=== PATIENT | male | born 1930 | race Caucasian/White ===

== ENCOUNTER → 2016-11-01 | Outpatient (CLI) | payer OTHER ==
[~2016-11-01] MED LIST: DUTA0.5C PO; ESCI1TAB6 PO; FLM4 PO; GLIP-197 PO; IBUP-1427 PO; NMN10 PO; ZCR40 PO
[2016-11-01 15:21] LABS: CHOLESTEROL/HDL RATIO 3.3
== END | disposition home or self-care (01) ==
LOC: C.LAB 13:38
PROVIDERS: ATTEND Internal Medicine
DX: E11.9 Type 2 diabetes mellitus without complications (principal)

== ENCOUNTER → 2017-02-08 | Outpatient (CLI) | payer OTHER | END | disposition home or self-care (01) | LOC: C.LABSPEC 17:00 | PROVIDERS: ATTEND Urology | DX: N39.0 Urinary tract infection, site not specified (principal) ==

== ENCOUNTER → 2017-03-29 | Outpatient (CLI) | payer OTHER | END | disposition home or self-care (01) | LOC: C.PATHSPEC 17:13 | PROVIDERS: ATTEND Urology | DX: C67.9 Malignant neoplasm of bladder, unspecified (principal) ==

== ENCOUNTER → 2017-10-12 | Outpatient (CLI) | payer OTHER ==
--- NOTE | 2017-10-12 17:11 | DIAGNOSTIC IMAGING REPORT ---
R VENOUS DOPP LOWER EXT UNILAT CLINICAL HISTORY: RIGHT LEG PAIN AND SWELLING, R/O DVT TECHNIQUE: Venous Doppler COMPARISON STUDY: None FINDINGS: Complex nonocclusive thrombus within the right proximal femoral vein. Chronic venous scarring along the additional jett of the femoral vein. All remaining venous structures are intact. 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 The above report was generated using voice recognition software. It may contain grammatical, syntax or spelling errors. Electronically signed by: Checo Wright M.D. 10/12/2017 5:10 PM Dictated Date/Time: 10/12/2017 5:09 PM
== END | disposition home or self-care (01) ==
LOC: C.ULTR 16:25
PROVIDERS: ATTEND Internal Medicine
DX: I82.591 Chronic embolism and thrombosis of other specified deep vein of right lower extremity (principal)

== ENCOUNTER 2020-02-10 18:58 | Inpatient (IN) ==
[2020-02-10] MEDS ORDERED: SODIUM CHLORIDE 0.9% 1000ML 1,000 ML IV ONE (19:38)
[2020-02-10] MEDS ORDERED: ONDANSETRON INJ 2 MG/ML 2 ML VIAL IV STA (19:38)
[2020-02-10 19:47] LABS: Hematocrit (blood only) 32.9 % (42-52); Hemoglobin 10.8 g/dL (14.0-18.0); Mean Corpuscular Hgb Conc 32.8 g/dL (32-36); Mean Corpuscular Volume 94.5 fL (80-100); Mean Platelet Volume 9.3 fL (7.4-10.4); Platelet Count 277 K/uL (130-400); RDW Coefficient of Variation 13.6 % (11.5-14.5); RDW Standard Deviation 46.9 fL (36.4-46.3); Red Blood Count 3.48 M/uL (4.7-6.1); White Blood Count 12.19 K/uL (4.8-10.8)
--- NOTE | 2020-02-10 19:57 | XRay Report ---
XR chest 1V portable HISTORY: weakness COMPARISON: Chest 12/29/2013. FINDINGS: The heart remains mildly enlarged. Left-sided dual-chamber pacemaker. No pleural effusions. No pneumothorax. No new focal lung consolidations to suggest pneumonia. No evidence for pulmonary ed jose. IMPRESSION: No acute process. ACT 112: Negative or not required by law. Electronically signed by: Edvin Bell M.D. 02/10/2020 7:56 PM
--- NOTE | 2020-02-10 20:00 | Emergency Department Note ---
History of Present Illness General Chief complaint: Weakness Stated complaint: WEAKNESS, VOMITING, DIARRHEA Time Seen by Provider: 02/10/20 19:25 Source: patient, family (daughter in law), RN notes reviewed and old records rev iewed Mode of arrival: ambulatory Limitations: no limitations History of Present Illness Provider complaint: weakness Onset (ago): day(s) 1 Location: abdomen Radiation: non-radiation Severity: moderate Pain Consistency: + intermittent and + colicky Maximum Pain Intensity: 6 Current Pain Intensity: 6 Quality: + aching Relieved By: + immobilization Exacerbated By: + movement Associated symptoms: + fever/chills and + nausea/vomiting; no chest pain, no diaphoresis and no shortness of breath Treatments prior to arrival: none This is an 89-year-old male brought in by his [id number] over concerns of the patient is much weaker than normal. The patient has a history of dementia has a pacemaker in place. She reports he was having a large bowel movement whi ch went on for the past hour today. When the patient came out of the bathroom he was extremely weak. He is also having abdominal pain. The patient denies any blood in his stool. He describes the abdominal pain as a burning sensation that radiates into his back. He has not taken anything for the pain. Home Medications Home Medications Medication Instructions Recorded Confirmed Type atorvastatin 20 mg tablet 20 mg PO DAILY 07/17/18 02/10/20 History dutasteride 0.5 mg capsule 0.5 mg PO DAILY 07/17/18 02/10/20 History escitalopram oxalate 10 mg tablet 10 mg PO DAILY 07/17/18 02/10/20 History gabapentin 300 mg capsule 300 mg PO HS cap 07/17/18 02/10/20 History glipizide 2.5 mg tablet, extended 2.5 mg PO DAILY tab 07/17/18 02/10/20 History release 24 hr memantine 10 mg tablet 10 mg PO BID 07/17/18 02/10/20 History rivaroxaban 20 mg tablet 20 mg PO QPM 07/17/18 02/10/20 History tamsulosin 0.4 mg capsule 0.4 mg PO DAILY 07/17/18 02/10/20 History clobetasol 1 applic TOPICAL BID 02/10/20 02/10/20 History stepetmn-zhu-SM-lycopene-boron 1 tab PO DAILY 02/10/20 02/10/20 History [Bladder 2.2] Allergies Allergy/AdvReac Type Severity Reaction Status Date / Time Tetanus Vaccines and Toxoid Allergy Verified 01/16/20 14:28 spinal anesthesia AdvReac Unknown weakness,urinary Uncoded 11/28/19 13:44 retention,vomiting, SEVERE DIZZINESS Past Med/Surg History Medical History (Updated 02/11/20 @ 00:42 by Dean Anna MD) Actinic keratosis Arthritis Basal cell carcinoma Bladder cancer Bladder neck contracture BPH (benign prostatic hyperplasia) Carpal tunnel syndrome Chronic kidney disease Depression Diabetes DVT (deep venous thrombosis) Dyslipidemia Facet syndrome, lumbar Somerset's disease Hearing loss Insomnia Nephrolithiasis Nocturia Tinnitus Ureteral stricture Urinary frequency Venous stasis ulcer Xerosis cutis Surgical History Pacemaker S/P TURP Family History Other Family history non-contributory Social History Smoking Status: Never smoker Hx Alcohol Use: No Hx Substance Use: No Preferred Language: [facility] Communication Ability: [facility] Visual Impairment: Partially Limited Hearing Ability: Use of Hearing Aid Beliefs That Will Affect Care: None marital status: Current Living Situation: Alone current occupational status: retired Feels Safe at Home: Yes Review of Systems A total of 10 systems reviewed and were otherwise negative Physical Exam Vital Signs Vital Signs - 24 hr 02/10/20 19:04 02/10/20 19:47 02/10/20 20:40 Temperature 37.4 C Temperature Source Oral Pulse Rate 64 Pulse Rate [Apical] 61 60 Respiratory Rate 18 18 18 Respiratory Effort / Characteristics Non-Labored Non-Labored Respiratory Depth Normal Normal Blood Pressure 155/64 H Blood Pressure [Left Arm] 145/56 H 128/51 L Blood Pressure Mean 94 Blood Pressure Mean [Left Arm] 85 76 Pulse Oximetry 94 96 96 Oxygen Delivery Method Room Air Room Air Sepsis Recent Fever Within 48 Hours No Sepsis New/Unexplained Change in Mental Status No Sepsis Action Taken by Nursing No Action Required 02/10/20 21:04 02/10/20 21:09 02/10/20 22:04 Temperature 38.5 C H Temperature Source Oral Pulse Rate Pulse Rate [Apical] 60 60 Respiratory Rate 18 18 Respiratory Effort / Characteristics Respiratory Depth Blood Pressure Blood Pressure [Left Arm] 132/53 L 128/57 L Blood Pressure Mean Blood Pressure Mean [Left Arm] 79 80 Pulse Oximetry 95 95 Oxygen Delivery Method Room Air Room Air Sepsis Recent Fever Within 48 Hours Sepsis New/Unexplained Change in Mental Status Sepsis Action Taken by Nursing 02/10/20 22:30 02/10/20 23:02 02/10/20 23:40 Temperature 36.8 C Temperature Source Oral Pulse Rate Pulse Rate [Apical] 61 60 64 Respiratory Rate 18 20 18 Respiratory Effort / Characteristics Non-Labored Respiratory Depth Normal Blood Pressure Blood Pressure [Left Arm] 129/54 L 129/54 L 123/55 L Blood Pressure Mean Blood Pressure Mean [Left Arm] 79 79 77 Pulse Oximetry 95 97 95 Oxygen Delivery Method Room Air Room Air Room Air Sepsis Recent Fever Within 48 Hours Sepsis New/Unexplained Change in Mental Status Sepsis Action Taken by Nursing 02/10/20 23:50 Temperature Temperature Source Pulse Rate Pulse Rate [Apical] Respiratory Rate Respiratory Effort / Characteristics Respiratory Depth Blood Pressure Blood Pressure [Left Arm] Blood Pressure Mean Blood Pressure Mean [Left Arm] Pulse Oximetry Oxygen Delivery Method Room Air Sepsis Recent Fever Within 48 Hours Sepsis New/Unexplained Change in Mental Status Sepsis Action Taken by Nursing VITAL SIGNS - Vital signs and nursing notes were reviewed. GENERAL - 89-year-old male appearing stated age who is in no acute distress. speaks guatemalan, daughter in law is translating SKIN - Without rashes. HEAD - NC/AT. EYES - PERRL with EOMI bilaterally. Sclera anicteric. Palpebral conjunctiva pink and moist with no injection noted. EARS - No deformities of external structures noted on gross examination bilaterally. No pain elicited with palpation of the tragus bilaterally. External auditory canals without discharge or otorrhea. Tympanic membranes pearly hung without retraction or bulging. No fluid or purulent material visualized behind the TM. Handle of malleus, umbo, cone of light, pars tensa/flaccid all easily visualized. NOSE - Midline and without cyanosis. No epistaxis or purulent drainage noted. Septum midline without deviation or septal hematoma noted. MOUTH/OROPHARYNX - Without perioral cyanosis. Buccal mucosa pink and moist and without leukoplakia. Tongue midline with equal elevation of palate bilaterally. No tonsillar hypertrophy, erythema, or exudates noted. dentition noted. NECK - Neck with FROM. Supple to palpation. lymphadenopathy noted. No nuchal rigidity. LUNGS - Chest wall symmetric without accessory muscle use, intercostals retractions, or central cyanosis. Normal vesicular breath sounds CTA B/L. No wheezes, rales, or rhonchi appreciated. CARDIAC - RRR with S1/S2. No murmur, rubs, or gallops appreciated. ABDOMEN - Abdominal contour without pulsations or visible masses. BS normoactive all four quadrants. No tenderness, palpable masses, hepatosplenomegaly, or ascites noted. EXTREMITIES - No clubbing or peripheral cyanosis. No pretibial edema present. +3/5 radial, posterior tibial, and dorsalis pedis pulses palpated throughout. +5/5 strength noted in UE/LE bilaterally. NEUROLOGIC - Cranial nerves II through XII grossly intact. Sensory intact to light touch throughout. Patellar reflexes +2/4. PSYCH - A&Ox3 and cooperates fully with examiner. Pt is very pleasant and interacts well with examiner. Course Administered Medications Discontinued Medications Sodium Chloride (Nss 1000ml) 1,000 mls @ 999 mls/hr IV .Q1H1M ONE Stop: 02/10/20 20:38 Last Infusion: 02/10/20 21:41 Dose: 0 mls/hr Documented by: [id number] Admin: 02/10/20 20:41 Dose: 999 mls/hr Documented by: [id number] Cefoxitin Sodium (Mefoxin) 2,000 mg in 60 mls @ 100 mls/hr IV NOW STA Stop: 02/10/20 21:46 Last Infusion: 02/10/20 22:39 Dose: 0 mls/hr Documented by: [id number] Admin: 02/10/20 22:03 Dose: 100 mls/hr Documented by: [id number] Acetaminophen (Ofirmev) 1,000 mg in 100 mls @ 400 mls/hr IV NOW STA Stop: 02/10/20 21:42 Last Infusion: 02/10/20 22:45 Dose: 0 mls/hr Documented by: [id number] Admin: 02/10/20 22:27 Dose: 400 mls/hr Documented by: [id number] Ondansetron HCl (Ondansetron Inj 2 Mg/Ml 2 Ml Vial) 4 mg IV NOW STA Stop: 02/10/20 19:39 Last Admin: 02/10/20 21:10 Dose: Not Given Documented by: [id number] Critical Care Time I have personally spent greater than 90 minutes of critical care time in the direct management of this patient. This includes bedside care, interpretation of diagnostic studies, and testing, discussion with consultants, patient, and family members, and other required patient management activities. This 90 minutes is in excess of all separately billable procedures. Medical Decision Making Differential Diagnosis Infection, dehydration, metabolic abnormality, hypo/hyperglycemia, electrolyte disturbance, anemia, hypoxia, cardiac sources, intracerebral event, toxicologic, neurologic, as well as other pathologies. Medical Records Attestation: I reviewed the patient's medical records. Home Medications Current Medication List: was personally reviewed by me Laboratory Data Attestation: I reviewed the patient's lab results. Result diagrams: 02/10/20 19:34 02/10/20 19:34 Lab Results 02/10/20 02/10/20 02/10/20 Range/Units 19:34 19:34 19:34 WBC 12.19 H (4.8-10.8) K/uL RBC 3.48 L (4.7-6.1) M/uL Hgb 10.8 L (14.0-18.0) g/dL Hct 32.9 L (42-52) % MCV 94.5 (80-100) fL MCH 31.0 (25-34) pg MCHC 32.8 (32-36) g/dL RDW Std Deviation 46.9 H (36.4-46.3) fL RDW Coeff of Joe 13.6 (11.5-14.5) % Plt Count 277 (130-400) K/uL MPV 9.3 (7.4-10.4) fL Immature Gran % (Auto) 0.2 % Neut % (Auto) 82.0 % Lymph % (Auto) 9.6 % Mckenzie % (Auto) 7.8 % Eos % (Auto) 0.2 % Baso % (Auto) 0.2 % Neut # (Auto) 9.98 H (1.4-6.5) K/uL Lymph # (Auto) 1.17 L (1.2-3.4) K/uL Mckenzie # (Auto) 0.95 H (0.11-0.59) K/uL Eos # (Auto) 0.03 (0-0.5) K/uL Baso # (Auto) 0.03 (0-0.2) K/uL Immature Gran # (Auto) 0.03 H (0.00-0.02) K/uL Sodium 137 (136-145) mmol/L Potassium 4.5 (3.5-5.1) mmol/L Chloride 106 (98-107) mmol/L Carbon Dioxide 22 (21-32) mmol/L Anion Gap 9.0 (3-11) BUN 20 H (7-18) mg/dl Creatinine 1.52 H (0.6-1.4) mg/dl Est Cr Clr Drug Dosing Not Reportable Est GFR ( Amer) 46.4 Est GFR (Non-Af Amer) 40.0 BUN/Creatinine Ratio 13.0 (10-20) Glucose 261 H (70-99) mg/dl Calcium 8.8 (8.5-10.1) mg/dl Total Bilirubin 1.9 H (0.2-1) mg/dl Direct Bilirubin 1.2 H (0-0.2) mg/dl AST 1031 H (15-37) U/L ALT 499 H (12-78) U/L Alkaline Phosphatase 284 H (45-117) U/L Total Creatine Kinase 67 (39-308) U/L CK-MB (CK-2) < 1.0 (0.5-3.6) ng/ml CK/CKMB % Calc TNP Troponin I < 0.015 (0-0.045) ng/ml Total Protein 8.3 H (6.4-8.2) gm/dl Albumin 3.4 (3.4-5.0) gm/dl Globulin 4.9 H (2.5-4.0) gm/dl Albumin/Globulin Ratio 0.7 L (0.9-2) Lipase 72 L Cancelled (73-393) U/L TSH 0.651 (0.300-4.500) uIu/ml Urine Color Urine Appearance (Clear) Urine pH (4.5-7.5) Ur Specific Panther Burn (1.000-1.030) Urine Protein (Negative) Urine Glucose (UA) (Negative) Urine Ketones (Negative) Urine Blood (Negative) Urine Nitrite (Negative) Urine Bilirubin (Negative) Urine Urobilinogen (Negative) Ur Leukocyte Esterase (Negative) Urine WBC (Auto) (0-5) /hpf Urine RBC (Auto) (0-4) /hpf U Hyaline Cast (Auto) (0-5) /lpf U Epithel Cells (Auto) (0-5) /lpf Urine Bacteria (Auto) (Negative) Hep Bs Antigen (Neg) Hepatitis C Antibody (Neg) 02/10/20 02/10/20 Range/Units 19:34 21:10 WBC (4.8-10.8) K/uL RBC (4.7-6.1) M/uL Hgb (14.0-18.0) g/dL Hct (42-52) % MCV (80-100) fL MCH (25-34) pg MCHC (32-36) g/dL RDW Std Deviation (36.4-46.3) fL RDW Coeff of Joe (11.5-14.5) % Plt Count (130-400) K/uL MPV (7.4-10.4) fL Immature Gran % (Auto) % Neut % (Auto) % Lymph % (Auto) % Mckenzie % (Auto) % Eos % (Auto) % Baso % (Auto) % Neut # (Auto) (1.4-6.5) K/uL Lymph # (Auto) (1.2-3.4) K/uL Mckenzie # (Auto) (0.11-0.59) K/uL Eos # (Auto) (0-0.5) K/uL Baso # (Auto) (0-0.2) K/uL Immature Gran # (Auto) (0.00-0.02) K/uL Sodium (136-145) mmol/L Potassium (3.5-5.1) mmol/L Chloride (98-107) mmol/L Carbon Dioxide (21-32) mmol/L Anion Gap (3-11) BUN (7-18) mg/dl Creatinine (0.6-1.4) mg/dl Est Cr Clr Drug Dosing Est GFR ( Amer) Est GFR (Non-Af Amer) BUN/Creatinine Ratio (10-20) Glucose (70-99) mg/dl Calcium (8.5-10.1) mg/dl Total Bilirubin (0.2-1) mg/dl Direct Bilirubin (0-0.2) mg/dl AST (15-37) U/L ALT (12-78) U/L Alkaline Phosphatase (45-117) U/L Total Creatine Kinase (39-308) U/L CK-MB (CK-2) (0.5-3.6) ng/ml CK/CKMB % Calc Troponin I (0-0.045) ng/ml Total Protein (6.4-8.2) gm/dl Albumin (3.4-5.0) gm/dl Globulin (2.5-4.0) gm/dl Albumin/Globulin Ratio (0.9-2) Lipase (73-393) U/L TSH (0.300-4.500) uIu/ml Urine Color Dark Yellow Urine Appearance Clear (Clear) Urine pH 6.0 (4.5-7.5) Ur Specific Panther Burn 1.016 (1.000-1.030) Urine Protein 1+ H (Negative) Urine Glucose (UA) Trace H (Negative) Urine Ketones Negative (Negative) Urine Blood Trace H (Negative) Urine Nitrite Negative (Negative) Urine Bilirubin Negative (Negative) Urine Urobilinogen Negative (Negative) Ur Leukocyte Esterase Negative (Negative) Urine WBC (Auto) 1-5 (0-5) /hpf Urine RBC (Auto) 5-10 H (0-4) /hpf U Hyaline Cast (Auto) 1-5 (0-5) /lpf U Epithel Cells (Auto) >30 H (0-5) /lpf Urine Bacteria (Auto) Negative (Negative) Hep Bs Antigen Neg (Neg) Hepatitis C Antibody Neg (Neg) Imaging Data Radiologist's Impression: [place], [place] [phone] CT Scan Report Patient: MELONIE FORTE I Admit Date: 02/10/20 MR#: [id number] Address1: [address] [place] [address] [id number] Acct ID:[id number] Address2: Date: [address] [facility] Zip: [place] [address] Age: 89 Location: ED Sex: M Room/Bed: Att Phy: Diagnosis: WEAKNESS, VOMITING, DIARRHEA Jennifer Phy: PCP,NO Service Date: 02/10/20 Fam Phy: Interpreting Phy: Edvin Bell MD Admit Phy: Ordering Phy: Dean Anna MD cc: ~ ABDOMEN AND PELVIS CT WITHOUT CONTRAST CT DOSE: 618.84 mGy.cm HISTORY: Nausea. Vomiting. Diarrhea. TECHNIQUE: Multiaxial CT images of the abdomen and pelvis were performed without contrast. A dose lowering technique was utilized adhering to the principles of ALARA. COMPARISON STUDY: Abdomen and pelvis CT 05/27/2014. FINDINGS: Pacemaker wire is partially visualized. A 3 mm nodule within the right lower lobe on image 19. A few bibasilar linear densities favor atelectasis. There is a 3 mm nodule within the left lower lobe on image 5, unchanged. Therefore, this is likely benign. No pneumoperitoneum. No pneumatosis. Moderate osteoarthritis within the bilateral hips. No suspicious lytic or blastic osseous lesions. Bilateral gynecomastia. Small fat-containing bilateral inguinal hernias. Mild pericholecystic inflammatory change. The unenhanced liver, spleen, adrenal glands are unremarkable. Focal atrophy within the body of the pancreas, unchanged. Bilateral renal hypodense lesions are again noted. These favor cysts. Punctate bilateral renal calculi. No ureteral calculi. No hydronephrosis. Moderate bilateral cortical renal scarring/thinning persists. No retroperitoneal lymphadenopathy. Normal caliber abdominal aorta. No pelvic lymphadenopathy. The bladder is unremarkable. Suboptimal evaluation for bowel pathology due to the lack of intravenous and oral contrast. However, there is no definite bowel wall thickening or obstruction. Colonic diverticulosis. No evidence for diverticulitis. Normal appendix. IMPRESSION: 1. Mild pericholecystic inflammatory change. This is concerning for acute cholecystitis. Coronal correlation recommended. Follow-up right upper quadrant with the may also help for further evaluation. 2. No definite bowel wall thickening or obstruction. 3. Normal appendix. 4. Bilateral nephrolithiasis. No ureteral stones. No hydronephrosis. 5. Colonic diverticulosis. No evidence for acute diverticulitis. ACT 112: Negative or not required by law. Electronically signed by: Edvin Bell M.D. 02/10/2020 9:05 PM Dictated: 02/10/202056 Transcribed: 02/10/202056 [facility], [place] [phone] XRay Report Patient: MELONIE FORTE I Admit Date: 02/10/20 MR#: [id number] Address1: [address] [place] [address] [id number] Acct ID:[id number] Address2: Date: [address] [facility] Zip: [place] [address] Age: 89 Location: ED Sex: M Room/Bed: Att Phy: Diagnosis: WEAKNESS, VOMITING, DIARRHEA Jennifer Phy: PCP,NO Service Date: 02/10/20 [facility] Phy: Interpreting Phy: Edvin Bell MD Admit Phy: Ordering Phy: Dean Anna MD cc: ~ XR chest 1V portable HISTORY: weakness COMPARISON: Chest 12/29/2013. FINDINGS: The heart remains mildly enlarged. Left-sided dual-chamber pacemaker. No pleural effusions. No pneumothorax. No new focal lung consolidations to suggest pneumonia. No evidence for pulmonary edema. IMPRESSION: No acute process. ACT 112: Negative or not required by law. Electronically signed by: Edvin Bell M.D. 02/10/2020 7:56 PM Dictated: 02/10/201950 Transcribed: 02/10/201950 Ultrasound right upper quadrant: Comparison to CT scan from February 10, 2020 at 2049 hrs. The pancreas is mildly obscured by bowel gas. The liver is mildly echogenic and upper normal in size measuring 17.4 cm likely mild fatty infiltration. There is some focal fatty sparring near the gallbladder fossa. No focal liver lesion is seen. The portal vein is patent with normal directional flow. The common bile duct is nondilated measuring 6 mm. The gallbladder is partially distended with a thickened wall measuring 5 mm demonstrating a small amount of pericholecystic fluid. There is sludge in the dependent portion of the gallbladder. Sonographic Tuttle sign is negative. ECG Data Attestation: I personally reviewed and interpreted this ECG as follows: Indication: + altered mental status Rate (beats per minute): 62 Rhythm: + other (atrial paced rythym) MDM Narrative This is an 89-year-old male who presents to the emergency department febrile and complaining of abdominal pain. The patient has an elevation in his white blood cell count as well as his liver enzymes. He was sent for CAT scan the abdomen pelvis which was concerning for acute cholecystitis. I did discuss the case w ith the surgeon on-call who recommended the patient be transferred to a tertiary care center. Unfortunately both [facility] and [facility] are full. I did discuss these findings with the patient's family including his grandson who is also physician. The family is requesting that we admit the patient overnight for IV antibiotics and did consider transferring the patient to [facility] in the morning. I did discuss this with [address] [facility] [address] Betancur as well as Dr. Ramos. They are in agreement with this and have asked surgery as well as GI to see the patient here. Patient was started on IV antibiotics here. He was discussed with the hospitalist service. Patient was seen and evaluated as above in room C4. Review was performed of nursing notes and vital signs. I did review pertinent previous visits and patient history. After obtaining a thorough history and physical examination the above work up was performed. An order was placed for continuous cardiac monitoring. The monitor shows a rate of 64 with paced rhythm. The patient was evaluated during the global COVID-19 pandemic, and that diagnosis was suspected/considered upon their initial presentation. Their evaluation, treatment and testing was consistent with current guidelines for patients who present with complaints or symptoms that may be related to COVID- 19. Impression & Plan Abnormal LFTs, Acute cholecystitis, Dementia Discharge Plan Visit Data Chief Complaint: Weakness Stated Complaint: WEAKNESS, VOMITING, DIARRHEA ED Provider: Dean Anna Discharge Problem: Abnormal LFTs, Acute cholecystitis, Dementia Patient Disposition: Admitted As Inpatient Discharge Instructions Interventions: ED Discharge Assessment Last Done: 02/10/20 23:50 Discharge Problem: Dementia Qualifiers: Dementia type: unspecified type Dementia behavioral disturbance: without behavioral disturbance Qualified Code(s): F03.90 - Unspecified dementia without behavioral disturbance
[2020-02-10 20:03] LABS: Alanine Aminotransferase 499 U/L (12-78); Albumin Level 3.4 gm/dl (3.4-5.0); Blood Urea Nitrogen 20 mg/dl (7-18); Calcium 8.8 mg/dl (8.5-10.1); Carbon Dioxide 22 mmol/L (21-32); Chloride 106 mmol/L (98-107); Est GFR (African American) 46.4; Glucose 261 mg/dl (70-99); Potassium 4.5 mmol/L (3.5-5.1); Sodium 137 mmol/L (136-145)
[2020-02-10 20:06] LABS: Basophils # (auto) 0.03 K/uL (0-0.2); Basophils % (auto) 0.2 %; Eosinophils # (auto) 0.03 K/uL (0-0.5); Eosinophils % (auto) 0.2 %; Immature Granulocytes # (auto) 0.03 K/uL (0.00-0.02); Immature Granulocytes % (auto) 0.2 %; Lymphocytes # (auto) 1.17 K/uL (1.2-3.4); Lymphocytes % (auto) 9.6 %; Monocytes # (auto) 0.95 K/uL (0.11-0.59); Monocytes % (auto) 7.8 %; Neutrophils # (auto) 9.98 K/uL (1.4-6.5)
[2020-02-10 20:14] LABS: Albumin Globulin Ratio 0.7 (0.9-2); Alkaline Phosphatase 284 U/L (45-117); Aspartate Aminotransferase 1031 U/L (15-37); Bilirubin,Total 1.9 mg/dl (0.2-1); Creatine Kinase 67 U/L (39-308); Creatine Kinase MB < 1.0 ng/ml (0.5-3.6); Globulin 4.9 gm/dl (2.5-4.0); Thyroid Stimulating Hormone 0.651 uIu/ml (0.300-4.500); Total Protein 8.3 gm/dl (6.4-8.2); Troponin I < 0.015 ng/ml (0-0.045)
[2020-02-10 20:28] LABS: Lipase 72 U/L (73-393)
[2020-02-10 20:57] LABS: Hepatitis B Surface Antigen Neg (Neg)
--- NOTE | 2020-02-10 21:06 | CT Scan Report ---
ABDOMEN AND PELVIS CT WITHOUT CONTRAST CT DOSE: 618.84 mGy.cm HISTORY: Nausea. Vomiting. Diarrhea. TECHNIQUE: Multiaxial CT images of the abdomen and pelvis were performed without contrast. A dose lo wering technique was utilized adhering to the principles of ALARA. COMPARISON STUDY: Abdomen and pelvis CT 05/27/2014. FINDINGS: Pacemaker wire is partially visualized. A 3 mm nodule within the right lower lobe on image 19. A few bibasilar linear densities favor atelectasis. There is a 3 mm nodule within the left lower lobe on image 5, unchanged. Therefore, this is likely benign. No pneumoperitoneum. No pneumatosis. Mo derate osteoarthritis within the bilateral hips. No suspicious lytic or blastic osseous lesions. Bila teral gynecomastia. Small fat-containing bilateral inguinal hernias. Mild pericholecystic inflammator y change. The unenhanced liver, spleen, adrenal glands are unremarkable. Focal atrophy within the bod y of the pancreas, unchanged. Bilateral renal hypodense lesions are again noted. These favor cysts. P unctate bilateral renal calculi. No ureteral calculi. No hydronephrosis. Moderate bilateral cortical renal scarring/thinning persists. No retroperitoneal lymphadenopathy. Normal caliber abdominal aorta. No pelvic lymphadenopathy. The bladder is unremarkable. Suboptimal evaluation for bowel pathology du e to the lack of intravenous and oral contrast. However, there is no definite bowel wall thickening o r obstruction. Colonic diverticulosis. No evidence for diverticulitis. Normal appendix. IMPRESSION: 1. Mild pericholecystic inflammatory change. This is concerning for acute cholecystitis. Coronal dinora elation recommended. Follow-up right upper quadrant with the may also help for further evaluation. 2. No definite bowel wall thickening or obstruction. 3. Normal appendix. 4. Bilateral nephrolithiasis. No ureteral stones. No hydronephrosis. 5. Colonic diverticulosis. No evidence for acute diverticulitis. ACT 112: Negative or not required by law. Electronically signed by: Edvin Bell M.D. 02/10/2020 9:05 PM
[2020-02-10] MEDS ORDERED: cefOXitin 2,000 MG/60 ML BAG IV STA (21:11)
[2020-02-10 21:22] LABS: Appearance Urine Clear (Clear); Bacteria Urine Automated Negative (Negative); Blood Urine Trace (Negative); Color Urine Dark Yellow; Epithelial Cell Urine Auto >30 /lpf (0-5); Glucose Urine UA Trace (Negative); Ketones Urine Negative (Negative); Leukocyte Esterase Urine Negative (Negative); Nitrite Urine Negative (Negative); Protein Urine 1+ (Negative); Specific Gravity Urine 1.016 (1.000-1.030); Urobilinogen Urine Negative (Negative)
[2020-02-10 21:25] LABS: Hepatitis C IgG 13Yrs+Old_Rflx Neg (Neg)
[2020-02-10] MEDS ORDERED: ACETAMINOPHEN 1,000 MG/100 ML VIAL IV STA (21:28)
[2020-02-10 21:31] LABS: Bilirubin Urine Negative (Negative); Ictotest Urine Negative (Negative)
--- NOTE | 2020-02-10 22:20 | Surgery Consultation ---
Date of Consultation February 10, 2020 Assessment & Plan (1) Acute cholecystitis: -case reviewed with Dr. Ayala: -due to advanced age and marked elevation of LFTs, recommend transfer to center where IR available for percutaneous cholecystostomy -ED physician noted [place] available [place] [facility] [place] like pt. transferred; he did discuss with department of surgery at [facility] and due to lack of bed availability, they recommend admission at [facility] for IV abx. and ask GI to evaluate for elevated LFTs; ED physician notes he will have hospitalist admit for the above care History of Present Illness Attending Physician: History of Present Illness 89 year old male presented to ED secondary to N/V. Hx. was limited due to dementia, and was supplemented by daughter in law who was at bedside and discussion with ED physician. The pt. was noted to be doing well yesterday, but developed N/V earlier today. No fevers noted. He did not really complain of pain. No additional subjective data was able to be obtained. In the ED CT scan of te abdomen showed concern for acute cholecystitis. LFT were noted to be markedly elevated. At the time of my exam the pt. was resting comfortably in bed, not in any distress. Allergies Allergy/AdvReac Type Severity Reaction Status Date / Time Tetanus Vaccines and Toxoid Allergy Verified 01/16/20 14:28 spinal anesthesia AdvReac Unknown weakness,urinary Uncoded 11/28/19 13:44 retention,vomiting, SEVERE DIZZINESS Home Medications Home Medications Medication Instructions Recorded Confirmed Type atorvastatin 20 mg tablet 20 mg PO DAILY 07/17/18 02/10/20 History dutasteride 0.5 mg capsule 0.5 mg PO DAILY 07/17/18 02/10/20 History escitalopram oxalate 10 mg tablet 10 mg PO DAILY 07/17/18 02/10/20 History gabapentin 300 mg capsule 300 mg PO HS cap 07/17/18 02/10/20 History glipizide 2.5 mg tablet, extended 2.5 mg PO DAILY tab 07/17/18 02/10/20 History release 24 hr memantine 10 mg tablet 10 mg PO BID 07/17/18 02/10/20 History rivaroxaban 20 mg tablet 20 mg PO QPM 07/17/18 02/10/20 History tamsulosin 0.4 mg capsule 0.4 mg PO DAILY 07/17/18 02/10/20 History clobetasol 1 applic TOPICAL BID 02/10/20 02/10/20 History wfnygisl-dgw-LW-lycopene-boron 1 tab PO DAILY 02/10/20 02/10/20 History [Bladder 2.2] Patient History Medical History (Updated 02/10/20 @ 22:25 by Juancho Paul PA-C) Actinic keratosis Arthritis Basal cell carcinoma Bladder cancer Bladder neck contracture BPH (benign prostatic hyperplasia) Carpal tunnel syndrome Chronic kidney disease Depression Diabetes DVT (deep venous thrombosis) Dyslipidemia Facet syndrome, lumbar Dalton's disease Hearing loss Insomnia Nephrolithiasis Nocturia Tinnitus Ureteral stricture Urinary frequency Venous stasis ulcer Xerosis cutis Surgical History Pacemaker S/P TURP Family History Other Family history non-contributory Social History Smoking Status: Never smoker Hx Alcohol Use: No Hx Substance Use: No Preferred Language: [facility] Communication Ability: [facility] Visual Impairment: Partially Limited Hearing Ability: Use of Hearing Aid Beliefs That Will Affect Care: None marital status: Current Living Situation: Alone current occupational status: retired Feels Safe at Home: Yes Review of Systems Review of Systems: limited due to dementia Constitutional: no fever Respiratory: + cough Gastrointestinal: + nausea and + vomiting; no abdominal pain Physical Exam Constitutional: well developed and well nourished; no acute distress Eyes: + anicteric sclerae ENMT: no sublingual jaundice Neck: trachea midline Respiratory: normal respiratory effort, lungs clear to auscultation normal respiratory effort and + respiratory distress; no labored breathing Cardiovascular: Rate/Rhythm: regular rate and regular rhythm Gastrointestinal (Abdomen): Inspection/Auscultation: + hypoactive bowel sounds Percussion/Palpation: abdomen nontender and no guarding abdomen is rotund with slight distention; no pain with palpation Musculoskeletal: no calf pain Skin: no jaundice Neurologic: moves all extremities Results & Data ([facility]) Vital Signs (Past 12 Hours) Vital Signs Temp Pulse Pulse Resp BP BP Pulse Ox 02/10/20 22:04 60 18 128/57 L 95 02/10/20 21:09 38.5 C H 02/10/20 21:04 60 18 132/53 L 95 02/10/20 20:40 60 18 128/51 L 96 02/10/20 19:47 61 18 145/56 H 96 02/10/20 19:04 37.4 C 64 18 155/64 H 94 PG Care Time/CCT Total # of Minutes Spent Total Time Spent with Patient: Total time spent is greater than 50% in coordination of care (as documented) at patient's floor/unit and/or counseling patient: Coding Level of Care Code 33958 Inpt Consult Level 4 Diagnoses Acute cholecystitis K81.0
[2020-02-10 22:24] LABS: Bilirubin Direct 1.2 mg/dl (0-0.2)
--- NOTE | 2020-02-10 23:16 | History & Physical Report ---
Date of Service February 10, 2020 Assessment & Plan (1) Acute cholecystitis: 89yo C male with acute cholecystitis, possible fluid collection. Patient evaluated by General Surgery - recommend transfer to tertiary care facility for placement of percutaneous biliary drain. However, no beds available at this time at multiple facilities checked. Patient afebrile, HD stable, non-toxic in appearance. [id number] at bedside states that he is markedly improved. -Observation to medical floor -IVF - NSS at 80mL/hr x 1 liter -Cefoxitin 2gm IV q 6 hours -Tylenol PRN pain or fever -General Surgery assistance appreciated. Will keep overnight and transfer in AM pending bed availability -Will keep NPO, hold Rivaroxaban and check pre-op Covid Present on Admission?: Yes (2) Abnormal LFTs: Mixed obstructive, hepatocellular pattern. No obstructing biliary stones noted on imaging. -Repeat LFTs in AM -GI consultation at request of Surgery team - assistance appreciated Present on Admission?: Yes (3) Cellulitis of right lower leg: Improving. Patient follows with Wound clinic -Dressing changes as needed Present on Admission?: Yes (4) Chronic kidney disease: BUN=20, Cr=1.52. GFR=40 -Gentle IVF as above -Avoid nephrotoxic agents -Renal dosing where needed -Repeat chemistry in AM Present on Admission?: Yes (5) BPH (benign prostatic hyperplasia): Chronic -Conitnue Flomax and Dutasteride Present on Admission?: Yes (6) Diabetes: Chronic. Elevated blood sugar at 261 today -Hold Glipizide -Lantus 7u BID -ISS Present on Admission?: Yes (7) DVT (deep venous thrombosis): Remote. On anticoagulation with rivaroxaban -Hold rivaroxaban for possible surgery Present on Admission?: Yes (8) Dyslipidemia: Chronic -Continue Atorvastatin Present on Admission?: Yes (9) Depression: Chronic -Continue Escitalopram Present on Admission?: Yes (10) Dementia: Chronic -Continue memantine Present on Admission?: Yes History of Present Illness Chief Complaint: nausea/vomiting/diarrhea Primary Care Provider: NO PCP Jeremy Peck is an 89yo Mexican male with history of DM, CKD, Depression and prior DVT presenting with acute cholecystitis. Patient was in his usual state of health until this afternoon around 16:00 when he developed nausea/vomiting and non-bloody diarrhea. Patient then became diffusely weak and required ass istance to get off the commode. Patient febrile on arrival to 38.5, otherwise HD stable and nontoxic in appearance. Workup revealed acute cholecystitis. General Surgery was consulted and recommended transfer to tertiary care facility for placement of a percutaneous biliary drain. Patient offers no additional complaints. ER Course: Mefoxin Allergies Allergy/AdvReac Type Severity Reaction Status Date / Time Tetanus Vaccines and Toxoid Allergy Verified 01/16/20 14:28 spinal anesthesia AdvReac Unknown weakness,urinary Uncoded 11/28/19 13:44 retention,vomiting, SEVERE DIZZINESS Home Medications Home Medications Medication Instructions Recorded Confirmed Type atorvastatin 20 mg tablet 20 mg PO DAILY 07/17/18 02/10/20 History dutasteride 0.5 mg capsule 0.5 mg PO DAILY 07/17/18 02/10/20 History escitalopram oxalate 10 mg tablet 10 mg PO DAILY 07/17/18 02/10/20 History gabapentin 300 mg capsule 300 mg PO HS cap 07/17/18 02/10/20 History glipizide 2.5 mg tablet, extended 2.5 mg PO DAILY tab 07/17/18 02/10/20 History release 24 hr memantine 10 mg tablet 10 mg PO BID 07/17/18 02/10/20 History rivaroxaban 20 mg tablet 20 mg PO QPM 07/17/18 02/10/20 History tamsulosin 0.4 mg capsule 0.4 mg PO DAILY 07/17/18 02/10/20 History clobetasol 1 applic TOPICAL BID 02/10/20 02/10/20 History jyhzpati-uod-UV-lycopene-boron 1 tab PO DAILY 02/10/20 02/10/20 History [Bladder 2.2] Past Med/Surg History Medical History Actinic keratosis Arthritis Basal cell carcinoma Bladder cancer Bladder neck contracture BPH (benign prostatic hyperplasia) Carpal tunnel syndrome Chronic kidney disease Depression Diabetes DVT (deep venous thrombosis) Dyslipidemia Facet syndrome, lumbar Dalton's disease Hearing loss Insomnia Nephrolithiasis Nocturia Tinnitus Ureteral stricture Urinary frequency Venous stasis ulcer Xerosis cutis Surgical History Pacemaker S/P TURP Family History Other Family history non-contributory Social History Smoking Status: Never smoker Hx Alcohol Use: No Hx Substance Use: No Preferred Language: Mexican Communication Ability: Mexican Visual Impairment: Partially Limited Hearing Ability: Use of Hearing Aid Beliefs That Will Affect Care: None marital status: Current Living Situation: Alone current occupational status: retired Feels Safe at Home: Yes Review of Systems Review of Systems: All systems reviewed & are unremarkable except as noted in HPI & below Physical Exam Physical Exam: General: patient resting comfortably, NAD, non-toxic in appearance, Mexican speaking, hard of hearing Skin: warm, dry, intact, no rashes or lesions HEENT: NC/AT, PERRL, EOMI, anicteric sclera, conjunctiva without injection, external ear normal to inspection and nontender, nares patent, moist mucus membranes, dentition intact, no oropharyngeal lesions, neck supple, trachea midline, no LAD, no thyromegaly, no JVD Heart: +S1/S2, regular, no m/r/g Lungs: equal air entry bilaterally, no rales/rhonchi/wheezes Abd: +BS, soft, NT/ND, no masses/organomegaly/ascites Ext: warm, 2+ pulses in UE/LE bilaterally, no clubbing/cyanosis or edema Neuro: nonfocal, speech intact, no facial droop, moving all extremities on command with equal strength 5/5 Results & Data Results & Data ([facility]) Vital Signs (Past 12 Hours) Vital Signs Temp Pulse Pulse Resp BP BP Pulse Ox 02/10/20 23:02 60 20 129/54 L 97 02/10/20 22:30 61 18 129/54 L 95 02/10/20 22:04 60 18 128/57 L 95 02/10/20 21:09 38.5 C H 02/10/20 21:04 60 18 132/53 L 95 02/10/20 20:40 60 18 128/51 L 96 02/10/20 19:47 61 18 145/56 H 96 02/10/20 19:04 37.4 C 64 18 155/64 H 94 Laboratory Results Lab Results 02/10/20 02/10/20 02/10/20 Range/Units 19:34 19:34 19:34 WBC 12.19 H (4.8-10.8) K/uL RBC 3.48 L (4.7-6.1) M/uL Hgb 10.8 L (14.0-18.0) g/dL Hct 32.9 L (42-52) % MCV 94.5 (80-100) fL MCH 31.0 (25-34) pg MCHC 32.8 (32-36) g/dL RDW Std Deviation 46.9 H (36.4-46.3) fL RDW Coeff of Joe 13.6 (11.5-14.5) % Plt Count 277 (130-400) K/uL MPV 9.3 (7.4-10.4) fL Immature Gran % (Auto) 0.2 % Neut % (Auto) 82.0 % Lymph % (Auto) 9.6 % [place] % (Auto) 7.8 % Eos % (Auto) 0.2 % Baso % (Auto) 0.2 % Neut # (Auto) 9.98 H (1.4-6.5) K/uL Lymph # (Auto) 1.17 L (1.2-3.4) K/uL [place] # (Auto) 0.95 H (0.11-0.59) K/uL Eos # (Auto) 0.03 (0-0.5) K/uL Baso # (Auto) 0.03 (0-0.2) K/uL Immature Gran # (Auto) 0.03 H (0.00-0.02) K/uL Sodium 137 (136-145) mmol/L Potassium 4.5 (3.5-5.1) mmol/L Chloride 106 (98-107) mmol/L Carbon Dioxide 22 (21-32) mmol/L Anion Gap 9.0 (3-11) BUN 20 H (7-18) mg/dl Creatinine 1.52 H (0.6-1.4) mg/dl Est Cr Clr Drug Dosing Not Reportable Est GFR ( Amer) 46.4 Est GFR (Non-Af Amer) 40.0 BUN/Creatinine Ratio 13.0 (10-20) Glucose 261 H (70-99) mg/dl Calcium 8.8 (8.5-10.1) mg/dl Total Bilirubin 1.9 H (0.2-1) mg/dl Direct Bilirubin 1.2 H (0-0.2) mg/dl AST 1031 H (15-37) U/L ALT 499 H (12-78) U/L Alkaline Phosphatase 284 H (45-117) U/L Total Creatine Kinase 67 (39-308) U/L CK-MB (CK-2) < 1.0 (0.5-3.6) ng/ml CK/CKMB % Calc TNP Troponin I < 0.015 (0-0.045) ng/ml Total Protein 8.3 H (6.4-8.2) gm/dl Albumin 3.4 (3.4-5.0) gm/dl Globulin 4.9 H (2.5-4.0) gm/dl Albumin/Globulin Ratio 0.7 L (0.9-2) Lipase 72 L Cancelled (73-393) U/L TSH 0.651 (0.300-4.500) uIu/ml Urine Color Urine Appearance (Clear) Urine pH (4.5-7.5) Ur Specific [place] (1.000-1.030) Urine Protein (Negative) Urine Glucose (UA) (Negative) Urine Ketones (Negative) Urine Blood (Negative) Urine Nitrite (Negative) Urine Bilirubin (Negative) Urine Urobilinogen (Negative) Ur Leukocyte Esterase (Negative) Urine WBC (Auto) (0-5) /hpf Urine RBC (Auto) (0-4) /hpf U Hyaline Cast (Auto) (0-5) /lpf U Epithel Cells (Auto) (0-5) /lpf Urine Bacteria (Auto) (Negative) Hep Bs Antigen (Neg) Hepatitis C Antibody (Neg) 02/10/20 02/10/20 Range/Units 19:34 21:10 WBC (4.8-10.8) K/uL RBC (4.7-6.1) M/uL Hgb (14.0-18.0) g/dL Hct (42-52) % MCV (80-100) fL MCH (25-34) pg MCHC (32-36) g/dL RDW Std Deviation (36.4-46.3) fL RDW Coeff of Joe (11.5-14.5) % Plt Count (130-400) K/uL MPV (7.4-10.4) fL Immature Gran % (Auto) % Neut % (Auto) % Lymph % (Auto) % [place] % (Auto) % Eos % (Auto) % Baso % (Auto) % Neut # (Auto) (1.4-6.5) K/uL Lymph # (Auto) (1.2-3.4) K/uL [place] # (Auto) (0.11-0.59) K/uL Eos # (Auto) (0-0.5) K/uL Baso # (Auto) (0-0.2) K/uL Immature Gran # (Auto) (0.00-0.02) K/uL Sodium (136-145) mmol/L Potassium (3.5-5.1) mmol/L Chloride (98-107) mmol/L Carbon Dioxide (21-32) mmol/L Anion Gap (3-11) BUN (7-18) mg/dl Creatinine (0.6-1.4) mg/dl Est Cr Clr Drug Dosing Est GFR ( Amer) Est GFR (Non-Af Amer) BUN/Creatinine Ratio (10-20) Glucose (70-99) mg/dl Calcium (8.5-10.1) mg/dl Total Bilirubin (0.2-1) mg/dl Direct Bilirubin (0-0.2) mg/dl AST (15-37) U/L ALT (12-78) U/L Alkaline Phosphatase (45-117) U/L Total Creatine Kinase (39-308) U/L CK-MB (CK-2) (0.5-3.6) ng/ml CK/CKMB % Calc Troponin I (0-0.045) ng/ml Total Protein (6.4-8.2) gm/dl Albumin (3.4-5.0) gm/dl Globulin (2.5-4.0) gm/dl Albumin/Globulin Ratio (0.9-2) Lipase (73-393) U/L TSH (0.300-4.500) uIu/ml Urine Color Dark Yellow Urine Appearance Clear (Clear) Urine pH 6.0 (4.5-7.5) Ur Specific [place] 1.016 (1.000-1.030) Urine Protein 1+ H (Negative) Urine Glucose (UA) Trace H (Negative) Urine Ketones Negative (Negative) Urine Blood Trace H (Negative) Urine Nitrite Negative (Negative) Urine Bilirubin Negative (Negative) Urine Urobilinogen Negative (Negative) Ur Leukocyte Esterase Negative (Negative) Urine WBC (Auto) 1-5 (0-5) /hpf Urine RBC (Auto) 5-10 H (0-4) /hpf U Hyaline Cast (Auto) 1-5 (0-5) /lpf U Epithel Cells (Auto) >30 H (0-5) /lpf Urine Bacteria (Auto) Negative (Negative) Hep Bs Antigen Neg (Neg) Hepatitis C Antibody Neg (Neg) Diagnostic Findings ABDOMEN AND PELVIS CT WITHOUT CONTRAST CT DOSE: 618.84 mGy.cm HISTORY: Nausea. Vomiting. Diarrhea. TECHNIQUE: Multiaxial CT images of the abdomen and pelvis were performed without contrast. A dose lowering technique was utilized adhering to the principles of ALARA. COMPARISON STUDY: Abdomen and pelvis CT 05/27/2014. FINDINGS: Pacemaker wire is partially visualized. A 3 mm nodule within the right lower lobe on image 19. A few bibasilar linear densities favor atelectasis. There is a 3 mm nodule within the left lower lobe on image 5, unchanged. Therefore, this is likely benign. No pneumoperitoneum. No pneumatosis. Moderate osteoarthritis within the bilateral hips. No suspicious lytic or blastic osseous lesions. Bilateral gynecomastia. Small fat-containing bilateral inguinal hernias. Mild pericholecystic inflammatory change. The unenhanced liver, spleen, adrenal glands are unremarkable. Focal atrophy within the body of the pancreas, unchanged. Bilateral renal hypodense lesions are again noted. These favor cysts. Punctate bilateral renal calculi. No ureteral calculi. No hydronephrosis. Moderate bilateral cortical renal scarring/thinning persists. No retroperitoneal lymphadenopathy. Normal caliber abdominal aorta. No pelvic lymphadenopathy. The bladder is unremarkable. Suboptimal evaluation for bowel pathology due to the lack of intravenous and oral contrast. However, there is no definite bowel wall thickening or obstruction. Colonic diverticulosis. No evidence for diverticulitis. Normal appendix. IMPRESSION: 1. Mild pericholecystic inflammatory change. This is concerning for acute cholecystitis. Coronal correlation recommended. Follow-up right upper quadrant with the may also help for further evaluation. 2. No definite bowel wall thickening or obstruction. 3. Normal appendix. 4. Bilateral nephrolithiasis. No ureteral stones. No hydronephrosis. 5. Colonic diverticulosis. No evidence for acute diverticulitis. ACT 112: Negative or not required by law. Electronically signed by: Edvin Bell M.D. 02/10/2020 9:05 PM Dictated: 02/10/202056 Transcribed: 02/10/202056 XR chest 1V portable HISTORY: weakness COMPARISON: Chest 12/29/2013. FINDINGS: The heart remains mildly enlarged. Left-sided dual-chamber pacemaker. No pleural effusions. No pneumothorax. No new focal lung consolidations to suggest pneumonia. No evidence for pulmonary edema. IMPRESSION: No acute process. ACT 112: Negative or not required by law. Electronically signed by: Edvin Bell M.D. 02/10/2020 7:56 PM Dictated: 02/10/201950 Transcribed: 02/10/201950 RUQUS - Pancreas is mostly obscured by bowel gas. The liver is mildly echogenic and upper normal in size measuring 17.4cm likely mild fatty infiltration. There is some focal fatty sparing near the gallbladder fossa. No focal liver lesion is seen. The portal vein is patent with normal direction of flow. The common bile duct is nondilated measuring 6mm. The gallbladder is partially distended with a thickened wall measuring 5mm demonstrating a small amount of pe richolecystic fluid. There is sludge in the dependent portion of the gallbladder. Sonographic Tuttle sign is negative. 2.6 x 1.1 x 2.8 cm fluid colleciton adjacent to the gallbladder, possibly a loop of bowel Code Status & VTE Plan Code Status FULL PG Care Time/CCT Total # of Minutes Spent Total Time Spent with Patient: Total time spent is greater than 50% in coordination of care (as documented) at patient's floor/unit and/or counseling patient: Coding Level of Care Code 73302 Initial Inpt Care Lvl 3 Diagnoses Acute cholecystitis K81.0 Abnormal LFTs R94.5 Cellulitis of right lower leg L03.115 Chronic kidney disease N18.9 Chronic kidney disease stage: unspecified stage BPH (benign prostatic hyperplasia) N40.0 Lower urinary tract symptom presence: unspecified whether lower urinary tract symptoms present Diabetes E11.9 Diabetes mellitus type: type 2 Diabetes mellitus shelter insulin use: without shelter use Diabetes mellitus complication status: without complication DVT (deep venous thrombosis) I82.409 Affected thrombotic vein of extremity: unspecified vein of extremity Chronicity: unspecified Laterality: unspecified laterality Dyslipidemia E78.5 Depression F32.9 Depression Type: unspecified Dementia F03.90 Dementia type: unspecified type Dementia behavioral disturbance: without behavioral disturbance (1) Chronic kidney disease Chronic kidney disease stage: unspecified stage Qualified Code(s): N18.9 - Chronic kidney disease, unspecified (2) BPH (benign prostatic hyperplasia) Lower urinary tract symptom presence: unspecified whether lower urinary tract symptoms present Qualified Code(s): N40.0 - Benign prostatic hyperplasia without lower urinary tract symptoms (3) Diabetes Diabetes mellitus type: type 2 Diabetes mellitus shelter insulin use: without shelter use Diabetes mellitus complication status: without complication Qualified Code(s): E11.9 - Type 2 diabetes mellitus without complications (4) DVT (deep venous thrombosis) Affected thrombotic vein of extremity: unspecified vein of extremity Chronicity: unspecified Laterality: unspecified laterality (5) Depression Depression Type: unspecified Qualified Code(s): F32.9 - Major depressive disorder, single episode, unspecified (6) Dementia Dementia type: unspecified type Dementia behavioral disturbance: without behavioral disturbance Qualified Code(s): F03.90 - Unspecified dementia without behavioral disturbance
[2020-02-11] MEDS ORDERED: GLUCOSE 10 TABS/TUBE PO PRN (00:42)
[2020-02-11] MEDS ORDERED: SODIUM CHLORIDE 0.9% 1000ML 1,000 ML IV SCH (00:42)
[2020-02-11] MEDS ORDERED: CARBOHYDRATES FOR HYPOGLYCEMIA PO PRN (00:42)
[2020-02-11] MEDS ORDERED: ACETAMINOPHEN 325 MG TAB PO PRN (00:42)
[2020-02-11] MEDS ORDERED: GLUCOSE 40% GEL 15 GM TUBE PO PRN (00:42)
[2020-02-11] MEDS ORDERED: ONDANSETRON INJ 2 MG/ML 2 ML VIAL IV PRN (00:42)
[2020-02-11] MEDS ORDERED: DEXTROSE 50% 50 ML SYRINGE IV PRN (00:42)
[2020-02-11] MEDS ORDERED: GLUCAGON FOR INJ 1 MG VIAL SQ PRN (00:42)
[2020-02-11] MEDS ORDERED: INSULIN ASPART 100 UNITS/ML 3 ML PEN SC ONE (01:15)
[2020-02-11] MEDS: INSULIN GLARGINE SOLOSTAR 100 UNITS/ML 3 ML PEN SC SCH ×3 (01:46→21:01)
[2020-02-11] MEDS: AVODART~ORDER AWAITING ACTION SCH ×3 (02:19→16:53)
[2020-02-11] MEDS: cefOXitin 2,000 MG in DEXTROSE 5% 50 ML IV SCH ×3 (04:23→21:36)
[2020-02-11 05:32] LABS: Basophils # (auto) 0.02 K/uL (0-0.2); Basophils % (auto) 0.2 %; Eosinophils # (auto) 0.06 K/uL (0-0.5); Eosinophils % (auto) 0.5 %; Hematocrit (blood only) 31.6 % (42-52); Hemoglobin 10.6 g/dL (14.0-18.0); Immature Granulocytes # (auto) 0.03 K/uL (0.00-0.02); Immature Granulocytes % (auto) 0.3 %; Lymphocytes # (auto) 0.79 K/uL (1.2-3.4); Mean Corpuscular Hemoglobin 31.4 pg (25-34); Mean Corpuscular Hgb Conc 33.5 g/dL (32-36); Mean Corpuscular Volume 93.5 fL (80-100); Monocytes # (auto) 1.16 K/uL (0.11-0.59); Monocytes % (auto) 10.3 %; Neutrophils # (auto) 9.16 K/uL (1.4-6.5); Neutrophils % (auto) 81.7 %; Platelet Count 245 K/uL (130-400); RDW Coefficient of Variation 13.7 % (11.5-14.5); RDW Standard Deviation 46.7 fL (36.4-46.3); Red Blood Count 3.38 M/uL (4.7-6.1); White Blood Count 11.22 K/uL (4.8-10.8)
[2020-02-11 05:47] LABS: INR 1.2 (0.9-1.1); Prothrombin Time 12.6 Seconds (9.0-12.0)
[2020-02-11 06:06] LABS: Alanine Aminotransferase 619 U/L (12-78); Albumin Level 3.4 gm/dl (3.4-5.0); Alkaline Phosphatase 293 U/L (45-117); Aspartate Aminotransferase 890 U/L (15-37); BUN Creatinine Ratio 7.7 (10-20); Bilirubin Direct 2.2 mg/dl (0-0.2); Bilirubin,Total 3.1 mg/dl (0.2-1); Blood Urea Nitrogen 18 mg/dl (7-18); Calcium 8.9 mg/dl (8.5-10.1); Carbon Dioxide 24 mmol/L (21-32); Chloride 109 mmol/L (98-107); Est GFR (African American) 28.1; Est GFR (Non-African American) 24.3; Glucose 126 mg/dl (70-99); Potassium 3.7 mmol/L (3.5-5.1); Sodium 140 mmol/L (136-145); Total Protein 7.9 gm/dl (6.4-8.2)
[2020-02-11] MEDS: INSULIN ASPART 100 UNITS/ML 3 ML PEN SC SCH ×3 (06:27→18:49)
--- NOTE | 2020-02-11 07:03 | Ultrasound Report ---
Biliary ultrasound CLINICAL HISTORY: Pt c/o RUQ abd pain abnormal CT scan COMPARISON STUDY: CT scan dated 02/10/2020 FINDINGS: 1. The pancreas was not optimally visualized but no definite pancreatic abnormalities were identified . The liver was slightly heterogeneous in echotexture with the area of presumed focal fatty sparing adj acent to the gallbladder fossa. There is no ductal dilatation. The common bile duct measured 6 mm. There is no right-sided hydronephrosis. There was sludge within the gallbladder. There is minor gallbladder wall thickening with mild wall ed jose. There is a nonspecific 2.5 cm cystic structure versus fluid collection adjacent to the gallbladd er. If there is clinical concern over the presence of acute cholecystitis, a nuclear medicine hepatob iliary study could be obtained in follow-up to assess cystic duct patency IMPRESSION: 1. Mild gallbladder wall thickening with mild gallbladder wall edema and gallbladder sludge. 2. No evidence of ductal dilatation. ACT 112: Negative or not required by law. Electronically signed by: Ulysses Mack M.D. 02/11/2020 7:02 AM
[2020-02-11] MEDS: MEMANTINE HCL 10 MG TAB PO SCH ×2 (07:44→21:31)
[2020-02-11] MEDS: ESCITALOPRAM OXALATE 10 MG TAB PO SCH (07:44)
[2020-02-11] MEDS: TAMSULOSIN HCL 0.4 MG CAP PO SCH (07:44)
[2020-02-11] MEDS: CLOBETASOL PROPIONATE 0.05% OINT 15 GM TUBE EXT SCH ×2 (07:44→21:31)
--- NOTE | 2020-02-11 07:58 | Electrocardiogram Report ---
Test Reason : Blood Pressure : / mmHG Vent. Rate : 062 BPM Atrial Rate : 062 BPM P-R Int : 172 ms QRS Dur : 092 ms QT Int : 412 ms P-R-T Axes : 000 -13 019 degrees QTc Int : 418 ms Poor data quality, interpretation may be adversely affected Atrial-paced rhythm Old Lateral infarct Abnormal ECG When compared with ECG of 11-AUG-2014 16:34, No significant change was found Confirmed by Jose Roberto Noel ([id number]) on 02/11/2020 7:58:08 AM Referred By: REFERRED SELF Confirmed By:Jose Roberto Noel
--- NOTE | 2020-02-11 08:07 | Surgery Progress Note ---
Date of Service February 11, 2020 Assessment & Plan (1) Acute cholecystitis: Patient clinically seems to be doing okay at this point. LFTs have worsened as has his what appears to be acute on chronic renal failure. At this point time he is not a surgical candidate. My recommendation would be transfer to a tertiary center for possible cholecystostomy tube plus or minus ERCP if indicated. Family wondered about consideration for simple observation with antibiotics and we discussed the pros and cons and potential risks of this as well. I will continue to follow the patient while he is here however again this would not be an appropriate operative candidate at this time. Currently stable from a hemodynamic standpoint. (2) Abnormal LFTs: (3) Chronic kidney disease: Admission and Anticipated Discharge Date Admission Date: February 10, 2020 Subjective Patient seen with a family member ( Mary Anne)who works here at [facility]. She translates for us. He is actually feeling well this morning. He personally has no complaints and denies abdominal pain. The relative states that he looks much better than he did yesterday. Physical Exam Physical Exam: Alert. No acute distress. Has history of dementia but appears oriented at this time. HEENT: PEARLA. EOMI. no JVD Abdomen: Soft. Nontender nondistended. No guarding rebound or rigidity ext: No clubbing cyanosis or edema Results & Data ([facility]) Vital Signs (Past 12 Hours) Vital Signs Temp Pulse Pulse Resp BP Pulse Ox 02/11/20 07:17 37.0 C 60 18 130/62 96 02/11/20 01:20 70 02/11/20 00:42 36.6 C 68 18 148/66 H 96 02/10/20 23:40 36.8 C 64 18 123/55 L 95 02/10/20 23:02 60 20 129/54 L 97 02/10/20 22:30 61 18 129/54 L 95 02/10/20 22:04 60 18 128/57 L 95 02/10/20 21:09 38.5 C H 02/10/20 21:04 60 18 132/53 L 95 02/10/20 20:40 60 18 128/51 L 96 PG Care Time/CCT Total # of Minutes Spent Total Time Spent with Patient: Total time spent is greater than 50% in coordination of care (as documented) at patient's floor/unit and/or counseling patient: Coding Level of Care Code 82751 Subseq Hosp Care Lvl 3 Diagnoses Acute cholecystitis K81.0 Abnormal LFTs R94.5 Chronic kidney disease N18.9 Chronic kidney disease stage: unspecified stage (1) Chronic kidney disease Chronic kidney disease stage: unspecified stage Qualified Code(s): N18.9 - Chronic kidney disease, unspecified
[2020-02-11] MEDS ORDERED: ATORVASTATIN 20 MG TAB PO SCH (09:00)
--- NOTE | 2020-02-11 09:28 | Gastrointestinal Consultation ---
Date of Consultation February 11, 2020 Assessment & Plan (1) Abnormal LFTs: (2) Acute cholecystitis: GI consulted due to abnormal LFTs with acute cholecystitis on imaging. LFT abnormality felt to be consistent with acute cholecystitis. Patient with pacemaker so unable to obtain MRCP. Agree with tertiary care transfer for IR evaluation as patient is not a surgical candidate per surgery notes. Spoke to [id number], Tori, this morning who reports she would be agreeable to transfer to [facility] or [facility]. Case reviewed with Dr. Hickey. Please refer to supervising physician addendum for further recommendations. History of Present Illness Attending Physician: Kita Medina MD History of Present Illness The patient is an 89-year-old male with past medical history to include diabetes, CKD, depression, prior DVT, history of bladder cancer, BPH, dyslipidemia, venous stasis ulcer, hearing loss who presented to the emergency department 02/10/2020 due to complaints of severe weakness, diarrhea, chills. CT abdomen pelvis without contrast was obtained in the emergency department and demonstrated mild pericholecystic inflammation change concerning for acute cholecystitis. Subsequent ultrasound of the abdomen was obtained which demonstrated mild gallbladder wall thickening with mild gallbladder wall edema and gallbladder sludge. There was no evidence of ductal dilatation. Markedly elevated LFTs. The patient was evaluated by general surgery in consult 02/10/2020 and due to advanced age and elevation of LFTs unfortunately there was no bed recommended transfer to tertiary care center where interventional radiology would be available for percutaneous cholecystotomy. No bed available at [facility]. On exam/interview today, is lying in bed sleeping with no apparent distress. History limited due to dementia and primary Wallisian speaking. Subsequently history was supplemented by onkvhxfv-[id number]-oer via phone call. Patient is also quite hard of hearing. No fevers. No nausea, vomiting, diarrhea. No complaints of pain with palpation of abdomen. Spoke to Tori via telephone call this morning. She reports that patient became increasingly weak, with chills, and diarrhea. Denies abdominal pain. They called an ambulance due to weakness to go to the emergency department with findings as outlined above. She states that she would be agreeable to transfer for tertiary care center to either [facility] or [facility]. PCP is Dr. Fenton with [facility]. Lifetime non-smoker. The patient is . He lives alone with family close by for assistance. [id number], Tori, is a nurse and also his point of contact. Allergies Allergy/AdvReac Type Severity Reaction Status Date / Time Tetanus Vaccines and Toxoid Allergy Verified 01/16/20 14:28 spinal anesthesia AdvReac Unknown weakness,urinary Uncoded 11/28/19 13:44 retention,vomiting, SEVERE DIZZINESS Home Medications Home Medications Medication Instructions Recorded Confirmed Type atorvastatin 20 mg tablet 20 mg PO DAILY 07/17/18 02/10/20 History dutasteride 0.5 mg capsule 0.5 mg PO DAILY 07/17/18 02/10/20 History escitalopram oxalate 10 mg tablet 10 mg PO DAILY 07/17/18 02/10/20 History gabapentin 300 mg capsule 300 mg PO HS cap 07/17/18 02/10/20 History glipizide 2.5 mg tablet, extended 2.5 mg PO DAILY tab 07/17/18 02/10/20 History release 24 hr memantine 10 mg tablet 10 mg PO BID 07/17/18 02/10/20 History rivaroxaban 20 mg tablet 20 mg PO QPM 07/17/18 02/10/20 History tamsulosin 0.4 mg capsule 0.4 mg PO DAILY 07/17/18 02/10/20 History clobetasol 1 applic TOPICAL BID 02/10/20 02/10/20 History hokyzrmc-uje-BP-lycopene-boron 1 tab PO DAILY 02/10/20 02/10/20 History [Bladder 2.2] Patient History Medical History (Updated 02/11/20 @ 00:42 by Dean Anna MD) Actinic keratosis Arthritis Basal cell carcinoma Bladder cancer Bladder neck contracture BPH (benign prostatic hyperplasia) Carpal tunnel syndrome Chronic kidney disease Depression Diabetes DVT (deep venous thrombosis) Dyslipidemia Facet syndrome, lumbar Dalton's disease Hearing loss Insomnia Nephrolithiasis Nocturia Tinnitus Ureteral stricture Urinary frequency Venous stasis ulcer Xerosis cutis Surgical History Pacemaker S/P TURP Family History Other Family history non-contributory Social History Smoking Status: Never smoker Hx Alcohol Use: No Hx Substance Use: No Preferred Language: Wallisian Communication Ability: Effective Communication Tools: Writing Tablet and Physical Gestures Visual Impairment: Partially Limited Hearing Ability: Use of Hearing Aid 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 Beliefs That Will Affect Care: None marital status: Current Living Situation: Alone Current Living Situation Comment: 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 current occupational status: retired Feels Safe at Home: Yes Review of Systems Review of Systems: Unobtainable due to cognitive status Limited due to dementia Physical Exam 2 Constitutional: WD/WN, vitals as above + obese Neck: trachea midline, no thyromegaly Respiratory: normal respiratory effort, lungs clear to auscultation Cardiovascular: RRR, no murmur, no edema Gastrointestinal (Abdomen): Inspection/Auscultation: abdomen normal to inspection and normal bowel sounds; abdomen not distended Percussion/Palpation: + abdomen tender and abdomen soft; no guarding and abdomen not rigid Musculoskeletal: Extremities: no cyanosis and no clubbing Skin: no jaundice Results & Data ([facility]) Vital Signs (Past 12 Hours) Vital Signs Temp Pulse Pulse Resp BP Pulse Ox 02/11/20 08:00 60 02/11/20 07:17 37.0 C 60 18 130/62 96 02/11/20 01:20 70 02/11/20 00:42 36.6 C 68 18 148/66 H 96 02/10/20 23:40 36.8 C 64 18 123/55 L 95 02/10/20 23:02 60 20 129/54 L 97 02/10/20 22:30 61 18 129/54 L 95 02/10/20 22:04 60 18 128/57 L 95 Laboratory Results - last 24 hr 02/10/20 02/10/20 02/10/20 19:34 19:34 19:34 WBC 12.19 H RBC 3.48 L Hgb 10.8 L Hct 32.9 L MCV 94.5 MCH 31.0 MCHC 32.8 RDW Std Deviation 46.9 H RDW Coeff of Joe 13.6 Plt Count 277 MPV 9.3 Immature Gran % (Auto) 0.2 Neut % (Auto) 82.0 Lymph % (Auto) 9.6 Bryan % (Auto) 7.8 Eos % (Auto) 0.2 Baso % (Auto) 0.2 Neut # (Auto) 9.98 H Lymph # (Auto) 1.17 L Bryan # (Auto) 0.95 H Eos # (Auto) 0.03 Baso # (Auto) 0.03 Immature Gran # (Auto) 0.03 H PT INR Sodium 137 Potassium 4.5 Chloride 106 Carbon Dioxide 22 Anion Gap 9.0 BUN 20 H Creatinine 1.52 H Est Cr Clr Drug Dosing Not Reportable Est GFR ( Amer) 46.4 Est GFR (Non-Af Amer) 40.0 BUN/Creatinine Ratio 13.0 Glucose 261 H POC Glucose Calcium 8.8 Total Bilirubin 1.9 H Direct Bilirubin 1.2 H AST 1031 H ALT 499 H Alkaline Phosphatase 284 H Total Creatine Kinase 67 CK-MB (CK-2) < 1.0 CK/CKMB % Calc TNP Troponin I < 0.015 Total Protein 8.3 H Albumin 3.4 Globulin 4.9 H Albumin/Globulin Ratio 0.7 L Lipase 72 L Cancelled TSH 0.651 Urine Color Urine Appearance Urine pH Ur Specific [place] Urine Protein Urine Glucose (UA) Urine Ketones Urine Blood Urine Nitrite Urine Bilirubin Urine Urobilinogen Ur Leukocyte Esterase Urine WBC (Auto) Urine RBC (Auto) U Hyaline Cast (Auto) U Epithel Cells (Auto) Urine Bacteria (Auto) COVID-19 Eval Order Hepatitis A IgM Ab Hep Bs Antigen Hep B Core IgM Ab Hepatitis C Antibody SARS-CoV-2, RNA, NAAT 02/10/20 02/10/20 02/10/20 19:34 19:34 21:10 WBC RBC Hgb Hct MCV MCH MCHC RDW Std Deviation RDW Coeff of Joe Plt Count MPV Immature Gran % (Auto) Neut % (Auto) Lymph % (Auto) Bryan % (Auto) Eos % (Auto) Baso % (Auto) Neut # (Auto) Lymph # (Auto) Bryan # (Auto) Eos # (Auto) Baso # (Auto) Immature Gran # (Auto) PT INR Sodium Potassium Chloride Carbon Dioxide Anion Gap BUN Creatinine Est Cr Clr Drug Dosing Est GFR ( Amer) Est GFR (Non-Af Amer) BUN/Creatinine Ratio Glucose POC Glucose Calcium Total Bilirubin Direct Bilirubin AST ALT Alkaline Phosphatase Total Creatine Kinase CK-MB (CK-2) CK/CKMB % Calc Troponin I Total Protein Albumin Globulin Albumin/Globulin Ratio Lipase TSH Urine Color Dark Yellow Urine Appearance Clear Urine pH 6.0 Ur Specific [place] 1.016 Urine Protein 1+ H Urine Glucose (UA) Trace H Urine Ketones Negative Urine Blood Trace H Urine Nitrite Negative Urine Bilirubin Negative Urine Urobilinogen Negative Ur Leukocyte Esterase Negative Urine WBC (Auto) 1-5 Urine RBC (Auto) 5-10 H U Hyaline Cast (Auto) 1-5 U Epithel Cells (Auto) >30 H Urine Bacteria (Auto) Negative COVID-19 Eval Order Hepatitis A IgM Ab Pending Hep Bs Antigen Neg Hep B Core IgM Ab Pending Hepatitis C Antibody Neg SARS-CoV-2, RNA, NAAT 02/11/20 02/11/20 02/11/20 01:11 05:22 05:22 WBC 11.22 H RBC 3.38 L Hgb 10.6 L Hct 31.6 L MCV 93.5 MCH 31.4 MCHC 33.5 RDW Std Deviation 46.7 H RDW Coeff of Joe 13.7 Plt Count 245 MPV 9.0 Immature Gran % (Auto) 0.3 Neut % (Auto) 81.7 Lymph % (Auto) 7.0 Bryan % (Auto) 10.3 Eos % (Auto) 0.5 Baso % (Auto) 0.2 Neut # (Auto) 9.16 H Lymph # (Auto) 0.79 L Bryan # (Auto) 1.16 H Eos # (Auto) 0.06 Baso # (Auto) 0.02 Immature Gran # (Auto) 0.03 H PT 12.6 H INR 1.2 H Sodium Potassium Chloride Carbon Dioxide Anion Gap BUN Creatinine Est Cr Clr Drug Dosing Est GFR ( Amer) Est GFR (Non-Af Amer) BUN/Creatinine Ratio Glucose POC Glucose 209 H Calcium Total Bilirubin Direct Bilirubin AST ALT Alkaline Phosphatase Total Creatine Kinase CK-MB (CK-2) CK/CKMB % Calc Troponin I Total Protein Albumin Globulin Albumin/Globulin Ratio Lipase TSH Urine Color Urine Appearance Urine pH Ur Specific [place] Urine Protein Urine Glucose (UA) Urine Ketones Urine Blood Urine Nitrite Urine Bilirubin Urine Urobilinogen Ur Leukocyte Esterase Urine WBC (Auto) Urine RBC (Auto) U Hyaline Cast (Auto) U Epithel Cells (Auto) Urine Bacteria (Auto) COVID-19 Eval Order Hepatitis A IgM Ab Hep Bs Antigen Hep B Core IgM Ab Hepatitis C Antibody SARS-CoV-2, RNA, NAAT 0802/11/20 02/11/20 05:22 06:23 07:42 WBC RBC Hgb Hct MCV MCH MCHC RDW Std Deviation RDW Coeff of Joe Plt Count MPV Immature Gran % (Auto) Neut % (Auto) Lymph % (Auto) Bryan % (Auto) Eos % (Auto) Baso % (Auto) Neut # (Auto) Lymph # (Auto) Bryan # (Auto) Eos # (Auto) Baso # (Auto) Immature Gran # (Auto) PT INR Sodium 140 Potassium 3.7 D Chloride 109 H Carbon Dioxide 24 Anion Gap 7.0 BUN 18 Creatinine 2.30 H D Est Cr Clr Drug Dosing Not Reportable Est GFR ( Amer) 28.1 Est GFR (Non-Af Amer) 24.3 BUN/Creatinine Ratio 7.7 L Glucose 126 H POC Glucose 124 H 139 H Calcium 8.9 Total Bilirubin 3.1 H D Direct Bilirubin 2.2 H D AST 890 H ALT 619 H Alkaline Phosphatase 293 H Total Creatine Kinase CK-MB (CK-2) CK/CKMB % Calc Troponin I Total Protein 7.9 Albumin 3.4 Globulin Albumin/Globulin Ratio Lipase TSH Urine Color Urine Appearance Urine pH Ur Specific [place] Urine Protein Urine Glucose (UA) Urine Ketones Urine Blood Urine Nitrite Urine Bilirubin Urine Urobilinogen Ur Leukocyte Esterase Urine WBC (Auto) Urine RBC (Auto) U Hyaline Cast (Auto) U Epithel Cells (Auto) Urine Bacteria (Auto) COVID-19 Eval Order Hepatitis A IgM Ab Hep Bs Antigen Hep B Core IgM Ab Hepatitis C Antibody SARS-CoV-2, RNA, NAAT 02/11/20 02/11/20 Unknown Unknown WBC RBC Hgb Hct MCV MCH MCHC RDW Std Deviation RDW Coeff of Joe Plt Count MPV Immature Gran % (Auto) Neut % (Auto) Lymph % (Auto) Bryan % (Auto) Eos % (Auto) Baso % (Auto) Neut # (Auto) Lymph # (Auto) Bryan # (Auto) Eos # (Auto) Baso # (Auto) Immature Gran # (Auto) PT INR Sodium Potassium Chloride Carbon Dioxide Anion Gap BUN Creatinine Est Cr Clr Drug Dosing Est GFR ( Amer) Est GFR (Non-Af Amer) BUN/Creatinine Ratio Glucose POC Glucose Calcium Total Bilirubin Direct Bilirubin AST ALT Alkaline Phosphatase Total Creatine Kinase CK-MB (CK-2) CK/CKMB % Calc Troponin I Total Protein Albumin Globulin Albumin/Globulin Ratio Lipase TSH Urine Color Urine Appearance Urine pH Ur Specific [place] Urine Protein Urine Glucose (UA) Urine Ketones Urine Blood Urine Nitrite Urine Bilirubin Urine Urobilinogen Ur Leukocyte Esterase Urine WBC (Auto) Urine RBC (Auto) U Hyaline Cast (Auto) U Epithel Cells (Auto) Urine Bacteria (Auto) COVID-19 Eval [facility] Hepatitis A IgM Ab Hep Bs Antigen Hep B Core IgM Ab Hepatitis C Antibody SARS-CoV-2, RNA, NAAT NEGATIVE
[2020-02-11] MEDS: NSS + 20MEQ KCL 20 MEQ/1,000 ML BAG IV SCH ×2 (10:55→21:30)
[2020-02-11] MEDS ORDERED: metroNIDAZOLE 500 MG/100 ML BAG IV SCH (14:45)
--- NOTE | 2020-02-11 15:25 | Consultation Report ---
DATE OF CONSULTATION: 02/11/2020 Addendum to Martha Mejia's consult note: The patient was admitted with abdominal pain and vomiting and was found to have some inflammation around his gallbladder with some sludge on ultrasound and CT scan. His liver tests were abnormal in a mixed pattern. When I spoke to the patient and his [id number], he was having less pain but is in the process of being transferred to [facility] in [place] because the surgeons feel that he is at high risk for surgery and they are recommending a cholecystostomy. He does have a pacemaker, and for that reason, is not eligible to get an MRCP to look for possible common duct stones, although his bile duct is only 6 mm in diameter. IMPRESSION: The patient has acute cholecystitis and abnormal liver tests, probably from bystander inflammation or possibly bacteremia. The patient will be transferred to [place] for further care and evaluation.
--- NOTE | 2020-02-11 15:27 | Discharge Summary ---
Date of Service February 11, 2020 Admission HPI Per Admitting Provider Jeremy Peck is an 89yo Stateless male with history of DM, CKD, Depression and prior DVT presenting with acute cholecystitis. Patient was in his usual state of health until this afternoon around 16:00 when he developed nausea/vomiting and non-bloody diarrhea. Patient then became diffusely weak and required assistance to get off the commode. Patient febrile on arrival to 38.5, otherwise HD stable and nontoxic in appearance. Workup revealed acute cholecystitis. General Surgery was consulted and recommended transfer to tertiary care facility for placement of a percutaneous biliary drain. Patient offers no additional complaints. ER Course: Mefoxin Principal Diagnosis Acute cholecystitis RADHA Discharge Exam Constitutional WD/WN, vitals as above Eyes + anicteric sclerae Neck trachea midline, no thyromegaly Respiratory normal respiratory effort, lungs clear to auscultation Cardiovascular RRR, no murmur, no edema Chest (Breasts) Chest: normal inspection of chest Gastrointestinal (Abdomen) normal bowel sounds, soft, nontender, no hepatosplenomegaly Musculoskeletal Extremities: extremities normal to inspection; no cyanosis and no clubbing Skin no rashes, warm and dry Neurologic moves all extremities and awake; no focal motor deficits Psychiatric Orientation: alert, oriented to person, oriented to place and cooperative Eye Contact: good eye contact Speech: normal rate/rhythm/volume of speech Affect: euthymic affect Lymphatic no lymphedema Discharge Data Allergies Allergy/AdvReac Type Severity Reaction Status Date / Time Tetanus Vaccines and Toxoid Allergy Verified 01/16/20 14:28 spinal anesthesia AdvReac Unknown weakness,urinary Uncoded 11/28/19 13:44 retention,vomiting, SEVERE DIZZINESS Consultations 02/10/20 21:20 Consult General Surgery Stat 02/10/20 21:50 ED Decision to Admit Stat 02/11/20 00:42 Consult Gastroenterology Routine 02/11/20 14:48 Burn CD for patient Routine Ordered Studies 02/10/20 19:40 CT abd pelvis wo con Stat 02/10/20 20:48 US abdomen limited Urgent CXR Hospital Course (1) Acute cholecystitis: 89yo C male admitted with N/V/D, fever, leukocytosis, with acute cholecystitis seen on CT; RUQ US with acute db, no CBD dilatation, with possible fluid collection. LFTs markedly elevated Patient evaluated by General Surgery - recommend transfer to tertiary care facility for placement of percutaneous biliary drain. Had fever on admission Blood cultures drawn and pending-no growth to date -continue Cefoxitin which has GNR and anaerobic coverage -continue IVFs -Tylenol PRN pain or fever preop COVID is negative -keep NPO - hold Rivaroxaban -plan for transfer to [facility] today for eval for cholecystostomy tube (2) Abnormal LFTs: Mixed obstructive, hepatocellular pattern. No obstructing biliary stones noted on imaging, no CBD dilatation TBili climbing today to 3.1, DBili 2.2, AST 800, ALT 600s -cannot have MRCP due to pacer may need ERCP after transfer (3) Cellulitis of right lower leg: Improving. Patient follows with Wound clinic -Dressing changes as needed (4) Chronic kidney disease: With Acute kidney injury, card sorter up to 2.3 today from 1.5, BUN normal at 18 Likely ATN from sepsis UA with 1+ protein, no casts -continue IVFs, treating sepsis -follow BMP (5) BPH (benign prostatic hyperplasia): Chronic -Continue Flomax and Dutasteride (6) Diabetes: Chronic. Elevated blood sugar here -Hold Glipizide -Lantus 7u BID -ISS (7) DVT (deep venous thrombosis): Remote. On anticoagulation with rivaroxaban -Hold rivaroxaban for pprocedure (8) Dyslipidemia: Chronic -HOLD Atorvastatin for elevated LFTs (9) Depression: Chronic -Continue Escitalopram (10) Dementia: Chronic -Continue memantine (11) DVT prophylaxis: Holding Xarelto for procedure SCDs Dispo-transfer to [facility] today for perc db tube Total Time Total Time Spent Total Time Spent (In Minutes): >30 min Total Time Includes: Examination of the Patient, Discharge Planning, Medication Reconciliation and Communication With Other Providers (GI, [facility] MD) Discharge Plan Discharge Items Patient Disposition: Transfer Acute Care Hospital Reason For Visit: ACUTE CHOLECYSTITIS Discharge Diagnosis: Acute cholecystitis Condition on Discharge: Serious Activity: As commented below Lifting: None Bathing: No limitations Exercise/Sports: Rest today Non-emergency contact: Primary Care Provider Call non-emergency contact if: you have any medication questions Follow-up/Referrals: PCP,NO [Primary Care Provider] - Diet: Nothing by Mouth Addtl Attending Provider Instructions: Transferred to [facility] Pending Studies at Discharge: Yes Studies:: Blood cultures Stand-Alone Forms: My [facility] Skilled Items Patient informed of condition?: Yes DNR: No Discharge Level of Care: Other Communicable Disease: No Discharge Prognosis: Stable Lines: Peripheral IV Urinary Catheter: No Medications and DC Order Prescriptions: New cefoxitin 2 gram recon soln 2 g IV Q12H Qty: 30 RF: 0 Continued memantine [Namenda] 10 mg tablet 10 mg PO BID RF: 0 gabapentin [Neurontin] 300 mg capsule 300 mg PO HS RF: 0 rivaroxaban [Xarelto] 20 mg tablet 20 mg PO QPM RF: 0 atorvastatin 20 mg tablet 20 mg PO DAILY RF: 0 escitalopram oxalate [Lexapro] 10 mg tablet 10 mg PO DAILY RF: 0 glipizide [Glucotrol XL] 2.5 mg tablet extended release 24hr 2.5 mg PO DAILY RF: 0 dutasteride [Avodart] 0.5 mg capsule 0.5 mg PO DAILY RF: 0 tamsulosin [Flomax] 0.4 mg capsule 0.4 mg PO DAILY RF: 0 Bladder 2.2 200-5-250 mcg-mg-mcg Tablet 1 tab PO DAILY RF: 0 clobetasol 0.05 % Ointment 1 applic TOPICAL BID RF: 0 Discharge Orders: Discharge Order (Routine); Ordered 02/11/20 Ordered By: Kita Medina Admission Data Admit Date/Time: 02/10/20 23:15 Attending Provider: Kita Medina Admit Provider: Rhonda Eddy Primary Care Provider: PCP,NO Other Providers: Eugene Ayala ; Rhonda Eddy ; Manuel Kaur Coding Level of Care Code D/C Day Management >30 mins Diagnoses Acute cholecystitis K81.0 Abnormal LFTs R94.5 Cellulitis of right lower leg L03.115 Chronic kidney disease N18.9 Chronic kidney disease stage: unspecified stage BPH (benign prostatic hyperplasia) N40.0 Lower urinary tract symptom presence: unspecified whether lower urinary tract symptoms present Diabetes E11.9 Diabetes mellitus type: type 2 Diabetes mellitus group home insulin use: without group home use Diabetes mellitus complication status: without complication DVT (deep venous thrombosis) I82.409 Affected thrombotic vein of extremity: unspecified vein of extremity Chronicity: unspecified Laterality: unspecified laterality Dyslipidemia E78.5 Depression F32.9 Depression Type: unspecified Dementia F03.90 Dementia type: unspecified type Dementia behavioral disturbance: without behavioral disturbance DVT prophylaxis Z29.9
[2020-02-11] MEDS: GABAPENTIN 300 MG CAP PO SCH (21:31)
[2020-02-12] MEDS: INSULIN ASPART 100 UNITS/ML 3 ML PEN SC SCH ×4 (00:19→18:38)
[2020-02-12] MEDS: AVODART~ORDER AWAITING ACTION SCH ×3 (00:22→17:43)
--- NOTE | 2020-02-12 07:08 | Hospitalist Progress Note ---
Date of Service February 11, 2020 Late entry due to patient not being transferred Assessment & Plan (1) Acute cholecystitis: 89yo C male admitted with N/V/D, fever, leukocytosis, with acute cholecystitis seen on CT; RUQ US with acute db, no CBD dilatation, with possible fluid collection. LFTs markedly elevated Patient evaluated by General Surgery - recommend transfer to tertiary care facility for placement of percutaneous biliary drain. Had fever on admission Blood cultures drawn and pending-no growth to date -continue Cefoxitin which has GNR and anaerobic coverage -continue IVFs -Tylenol PRN pain or fever preop COVID is negative -keep NPO - hold Rivaroxaban -plan for transfer to [facility] Pres when bed available for eval for cholecystostomy tube (2) Abnormal LFTs: Mixed obstructive, hepatocellular pattern. No obstructing biliary stones noted on imaging, no CBD dilatation TBili climbing today to 3.1, DBili 2.2, AST 800, ALT 600s -cannot have MRCP due to pacer may need ERCP after transfer (3) Cellulitis of right lower leg: Improving. Patient follows with Wound clinic -Dressing changes as needed (4) Chronic kidney disease: CKD stage 3 with Acute kidney injury, cytogeneticist up to 2.3 today from 1.5, BUN normal at 18 Likely ATN from sepsis UA with 1+ protein, no casts -continue IVFs, treating sepsis -follow BMP (5) BPH (benign prostatic hyperplasia): Chronic -Continue Flomax and Dutasteride (6) Diabetes: Chronic. Elevated blood sugar here -Hold Glipizide -Lantus 7u BID -ISS (7) DVT (deep venous thrombosis): Remote. On anticoagulation with rivaroxaban -Hold rivaroxaban for procedure (8) Dyslipidemia: Chronic -HOLD Atorvastatin for elevated LFTs (9) Depression: Chronic -Continue Escitalopram (10) Dementia: Chronic -Continue memantine (11) DVT prophylaxis: Holding Xarelto for procedure SCDs Dispo-transfer to [facility] for perc db tube when bed available-accepting physician is Dr. Rivero of hospitalist service Admission and Anticipated Discharge Date Admission Date: February 11, 2020 Subjective Pt has no complaints. No abd pain, no CP or SOB. Not lightheaded. Is making urine. regarding transfer. Also spoke with his daughter on 2 occasions on phone and at bedside I discussed his care with [facility] and with [facility] Rivero on the phone Review of Systems Review of Systems: All systems reviewed & are unremarkable except as noted in HPI & below Physical Exam Constitutional: WD/WN, vitals as above Eyes: + anicteric sclerae ENMT: external ear and nose normal, oropharynx normal Neck: trachea midline, no thyromegaly Respiratory: normal respiratory effort, lungs clear to auscultation Cardiovascular: RRR, no murmur, no edema Chest (Breasts): Chest: normal inspection of chest Gastrointestinal (Abdomen): normal bowel sounds, soft, nontender, no hepatosplenomegaly Musculoskeletal: Extremities: extremities normal to inspection; no cyanosis and no clubbing Skin: no rashes, warm and dry Neurologic: moves all extremities and awake; no focal motor deficits Psychiatric: A+Ox3, euthymic affect Orientation: alert, oriented to person, oriented to place and cooperative Eye Contact: good eye contact Speech: normal rate/rhythm/volume of speech Affect: euthymic affect Lymphatic: no lymphedema Results & Data Results & Data ([facility]) Vital Signs (Past 12 Hours) Vital Signs Temp Pulse Pulse Resp BP Pulse Ox 02/12/20 04:31 36.6 C 63 18 159/69 H 92 02/12/20 01:40 61 02/11/20 23:37 36.4 C L 62 18 146/62 H 92 02/11/20 21:10 60 02/11/20 19:18 36.6 C 60 18 147/68 H 94 Laboratory Results labs and rads reviewed PG Care Time/CCT Total # of Minutes Spent Total Time Spent with Patient: Total time spent is greater than 50% in coordination of care (as documented) at patient's floor/unit and/or counseling patient: Coding Level of Care Code 52312 Subseq Hosp Care Lvl 3 Diagnoses Acute cholecystitis K81.0 Abnormal LFTs R94.5 Cellulitis of right lower leg L03.115 Chronic kidney disease N18.9 Chronic kidney disease stage: unspecified stage BPH (benign prostatic hyperplasia) N40.0 Lower urinary tract symptom presence: unspecified whether lower urinary tract symptoms present Diabetes E11.9 Diabetes mellitus type: type 2 Diabetes mellitus snf insulin use: without keno terminal operator use Diabetes mellitus complication status: without complication DVT (deep venous thrombosis) I82.409 Affected thrombotic vein of extremity: unspecified vein of extremity Chronicity: unspecified Laterality: unspecified laterality Dyslipidemia E78.5 Depression F32.9 Depression Type: unspecified Dementia F03.90 Dementia type: unspecified type Dementia behavioral disturbance: without behavioral disturbance DVT prophylaxis Z29.9 (1) Chronic kidney disease Chronic kidney disease stage: unspecified stage Qualified Code(s): N18.9 - Chronic kidney disease, unspecified (2) BPH (benign prostatic hyperplasia) Lower urinary tract symptom presence: unspecified whether lower urinary tract symptoms present Qualified Code(s): N40.0 - Benign prostatic hyperplasia without lower urinary tract symptoms (3) Diabetes Diabetes mellitus type: type 2 Diabetes mellitus snf insulin use: without snf use Diabetes mellitus complication status: without complic ation Qualified Code(s): E11.9 - Type 2 diabetes mellitus without complications (4) DVT (deep venous thrombosis) Affected thrombotic vein of extremity: unspecified vein of extremity Chronicity: unspecified Laterality: unspecified laterality (5) Depression Depression Type: unspecified Qualified Code(s): F32.9 - Major depressive disorder, single episode, unspecified (6) Dementia Dementia type: unspecified type Dementia behavioral disturbance: without behavioral disturbance Qualified Code(s): F03.90 - Unspecified dementia without behavioral disturbance
[2020-02-12 07:38] LABS: Basophils # (auto) 0.02 K/uL (0-0.2); Basophils % (auto) 0.2 %; Eosinophils # (auto) 0.19 K/uL (0-0.5); Eosinophils % (auto) 2.2 %; Hematocrit (blood only) 31.8 % (42-52); Hemoglobin 10.1 g/dL (14.0-18.0); Immature Granulocytes # (auto) 0.01 K/uL (0.00-0.02); Immature Granulocytes % (auto) 0.1 %; Lymphocytes # (auto) 0.73 K/uL (1.2-3.4); Lymphocytes % (auto) 8.4 %; Mean Corpuscular Hemoglobin 30.1 pg (25-34); Mean Corpuscular Hgb Conc 31.8 g/dL (32-36); Mean Corpuscular Volume 94.9 fL (80-100); Mean Platelet Volume 9.4 fL (7.4-10.4); Monocytes # (auto) 1.39 K/uL (0.11-0.59); Monocytes % (auto) 15.9 %; Neutrophils % (auto) 73.2 %; Platelet Count 240 K/uL (130-400); RDW Coefficient of Variation 14.3 % (11.5-14.5); RDW Standard Deviation 49.6 fL (36.4-46.3); Red Blood Count 3.35 M/uL (4.7-6.1); White Blood Count 8.74 K/uL (4.8-10.8)
[2020-02-12 08:14] LABS: Alanine Aminotransferase 405 U/L (12-78); Albumin Level 2.9 gm/dl (3.4-5.0); Alkaline Phosphatase 319 U/L (45-117); Aspartate Aminotransferase 366 U/L (15-37); BUN Creatinine Ratio 12.5 (10-20); Bilirubin Direct 1.9 mg/dl (0-0.2); Bilirubin,Total 2.6 mg/dl (0.2-1); Blood Urea Nitrogen 16 mg/dl (7-18); Calcium 8.8 mg/dl (8.5-10.1); Carbon Dioxide 22 mmol/L (21-32); Chloride 113 mmol/L (98-107); Est GFR (African American) 56.1; Est GFR (Non-African American) 48.4; Glucose 93 mg/dl (70-99); Lipase 47 U/L (73-393); Magnesium 2.2 mg/dl (1.8-2.4); Phosphorus 2.3 mg/dl (2.5-4.9); Potassium 4.3 mmol/L (3.5-5.1); Sodium 142 mmol/L (136-145); Total Protein 7.3 gm/dl (6.4-8.2)
[2020-02-12] MEDS: NSS + 20MEQ KCL 20 MEQ/1,000 ML BAG IV SCH ×2 (08:21→17:43)
[2020-02-12] MEDS: CLOBETASOL PROPIONATE 0.05% OINT 15 GM TUBE EXT SCH ×2 (08:39→19:43)
[2020-02-12] MEDS: TAMSULOSIN HCL 0.4 MG CAP PO SCH (08:40)
[2020-02-12] MEDS: ESCITALOPRAM OXALATE 10 MG TAB PO SCH (08:40)
[2020-02-12] MEDS: MEMANTINE HCL 10 MG TAB PO SCH ×2 (08:40→19:44)
[2020-02-12] MEDS: INSULIN GLARGINE SOLOSTAR 100 UNITS/ML 3 ML PEN SC SCH (09:14)
[2020-02-12] MEDS: cefOXitin 2,000 MG in DEXTROSE 5% 50 ML IV SCH (10:29)
[2020-02-12 11:47] LABS: Hepatitis A Antibody IgM NON-REACTIVE (NON-REACTIVE); Hepatitis B Core Antibody IgM NON-REACTIVE (NON-REACTIVE)
[2020-02-12] MEDS: GABAPENTIN 300 MG CAP PO SCH (19:44)
[2020-02-12] MEDS ORDERED: INSULIN GLARGINE SOLOSTAR 100 UNITS/ML 3 ML PEN SC SCH (21:00)
== END 2020-02-12 20:15 | disposition short-term general hospital (02) | DRG 871 ==
LOC: 2N 18:58 → ED 18:58 → SUATTDRO 23:15 → 2N 23:50